=== PATIENT | male | born 1945 | race Caucasian/White ===

== ENCOUNTER 2016-09-03 08:28 | Outpatient (CLI) | payer MEDICARE ==
[2016-09-03 11:16] LABS: ALT (SGPT) 19 U/L (0-55); AST (SGOT) 19 U/L (5-34); Albumin 4.2 g/dL (3.4-4.8); Alkaline Phosphatase 134 U/L (40-150); Anion Gap 17 mmol/L (10-20); BUN (Urea Nitrogen) 21 mg/dL (8.4-25.7); Bilirubin, Total 0.9 mg/dL (0.2-1.2); Calc. Creatinine Clearance 0 mL/min (70-130); Calcium 9.4 mg/dL (7.8-10.44); Carbon Dioxide 24 mmol/L (23-31); Cardiac Risk 5.9 (Less than 4.5); Chloride 104 mmol/L (98-107); Cholesterol 232 mg/dL (< 200 Desired); Estimated GFR-MDRD 74; Globulin 2.6 g/dL (2.4-3.5); Glucose 98 mg/dL (80-115); HDL Cholesterol 39 mg/dL (>60 Neg Risk); LDL Cholesterol, Calculated 162 mg/dL; Potassium 4.3 mmol/L (3.5-5.1); Protein, Total 6.8 g/dL (5.8-8.1); Sodium 141 mmol/L (136-145); Triglycerides 157 mg/dL (Less than 150)
[2016-09-03 11:37] LABS: Free T4 (Free Thyroxine) 0.94 ng/dL (0.70-1.48); Thyroid Stimulating Hormone 1.603 uIU/mL (0.35-4.94)
== END 2016-09-03 08:29 ==
LOC: MADLABBHPM 08:28
PROVIDERS: ATTEND Family Medicine
DX: E78.2 Mixed hyperlipidemia (principal); I10 Essential (primary) hypertension
CPT/HCPCS: 36415; 80053; 80061; 84439; 84443

== ENCOUNTER 2018-01-23 10:02 | Emergency (ER) | payer MEDICARE ==
[2018-01-23 10:30] LABS: Bilirubin Negative (Negative); Blood, Urine Small (Negative); Clarity Clear (Clear); Glucose, Urine (Dipstick) Negative (Negative); Leukocyte Negative (Negative); Nitrite Negative (Negative); Protein, Urine (Dipstick) Negative (Neg-Trace); Urobilinogen 0.2 mg/dL (0.2-1.0)
[2018-01-23 10:37] LABS: Bacteria/HPF Rare-Few HPF (None Seen); RBC/HPF 0-3 HPF (0-3); Squamous Epithelial 0-3 HPF (0-3); WBC/HPF 0-3 HPF (0-3)
[2018-01-23] MEDS ORDERED: Clindamycin 150 MG CAP ONE (10:50)
== END 2018-01-23 10:55 | disposition home or self-care (01) ==
LOC: MADERS 10:02
DX: L73.9 Follicular disorder, unspecified (principal); I25.10 Atherosclerotic heart disease of native coronary artery without angina pectoris; I10 Essential (primary) hypertension; Z79.82 Long term (current) use of aspirin; Z79.891 Long term (current) use of opiate analgesic; Z79.899 Other long term (current) drug therapy
CPT/HCPCS: 81003; 81015; 99283

== ENCOUNTER 2018-08-31 12:39 | Emergency (ER) | payer MEDICARE ==
[2018-08-31 13:15] LABS: #Basophils 0.1 thou/uL (0.0-0.2); #Monocytes 1.8 thou/uL (0.11-0.59); #Neutrophils 11.2 thou/uL (1.40-6.50); %Basophils 0.9 % (0.0-1.0); %Lymphocytes 6.8 % (21.0-51.0); %Monocytes 12.5 % (0.0-10.0); %Neutrophils 79.9 % (42.0-75.0); Mean Corpuscular Volume 90.6 fL (78.0-98.0); Mean Platelet Volume 7.6 fL (7.4-10.4); Platelet Count 191 thou/uL (130-400); RBC Distribution Width 13.4 % (11.5-14.5); Red Blood Cell (RBC) Count 4.48 mill/uL (4.70-6.10)
--- NOTE | 2018-08-31 13:19 | RAD ---
SINGLE VIEW CHEST: Date: 08/31/18 COMPARISON: 11/21/13. HISTORY: Cough. FINDINGS: Single view of the chest shows an enlarged cardiomediastinal silhouette. The patient is status post C ABG. The pacemaker is unchanged in position. There is no evidence of consolidation, mass, or pleural effusion. IMPRESSION: No evidence of acute cardiopulmonary disease. POS: TPC
[2018-08-31 13:34] LABS: ALT (SGPT) 33 U/L (8-55); AST (SGOT) 25 U/L (5-34); Albumin 3.9 g/dL (3.4-4.8); Alkaline Phosphatase 140 U/L (40-150); Anion Gap 18 mmol/L (10-20); BUN (Urea Nitrogen) 27 mg/dL (8.4-25.7); Bilirubin, Total 3.6 mg/dL (0.2-1.2); Calc. Creatinine Clearance 0 mL/min (70-130); Calcium 9.1 mg/dL (7.8-10.44); Carbon Dioxide 20 mmol/L (23-31); Chloride 102 mmol/L (98-107); Estimated GFR-MDRD 60; Glucose 131 mg/dL (80-115); Lipase 6 U/L (8-78); Potassium 4.4 mmol/L (3.5-5.1); Protein, Total 6.9 g/dL (5.8-8.1); Sodium 136 mmol/L (136-145)
[2018-08-31 13:52] LABS: CKMB 0.9 ng/mL (0-6.6)
[2018-08-31] MEDS ORDERED: Aspirin Chewable 81 MG TAB ONE (14:56)
[2018-08-31] MEDS ORDERED: Acetaminophen 325 MG TAB ONE (15:01)
== END 2018-08-31 15:14 | disposition short-term general hospital (02) ==
LOC: MADERS 12:39
DX: I11.0 Hypertensive heart disease with heart failure (principal); I50.9 Heart failure, unspecified; I95.9 Hypotension, unspecified; I25.10 Atherosclerotic heart disease of native coronary artery without angina pectoris; Z79.899 Other long term (current) drug therapy; Z79.82 Long term (current) use of aspirin
CPT/HCPCS: 71045; 80053; 82553; 83690; 83880; 84484; 85025; 87804; 93005; J7620

== ENCOUNTER 2018-10-01 10:05 | Outpatient (CLI) | payer MEDICARE ==
[2018-10-01 11:16] LABS: Anion Gap 16 mmol/L (10-20); BUN (Urea Nitrogen) 23 mg/dL (8.4-25.7); Calc. Creatinine Clearance 0 mL/min (70-130); Calcium 9.5 mg/dL (7.8-10.44); Carbon Dioxide 25 mmol/L (23-31); Chloride 104 mmol/L (98-107); Estimated GFR-MDRD 60; Glucose 119 mg/dL (80-115); Potassium 4.8 mmol/L (3.5-5.1); Sodium 140 mmol/L (136-145)
--- NOTE | 2018-10-01 12:13 | CT ---
CT CHEST PERFORMED WITHOUT CONTRAST ENHANCEMENT: Date: 10/01/18 HISTORY: Community-acquired pneumonia of lung. COMPARISON: 09/01/18 study. FINDINGS: The ground-glass infiltrative changes seen within the right lower lobe on the previous examination denny ve largely resolved. There is a pleural based area of nodularity along the posterior sulcus, which is probably just related to some atelectatic change that has developed. The left lower lobe pulmonary n odule is felt to be fairly similar in appearance to the prior examination. There are some slightly in creased parenchymal changes surrounding this nodular density. Right-sided pleural effusion has resolved. No significant change in the mediastinal lymphadenopathy as compared to the prior examination. Visualized liver parenchymal is unremarkable. Right and left adrenal glands are within normal limits. IMPRESSION: 1. Almost complete resolution of the right lower lobe infiltrate. 2. Left lower lobe pulmonary nodule which is felt to be fairly stable in size. There are some slight ly more prominent parenchymal changes surrounding this nodule which may be just on the basis of some adjacent atelectasis. 3. Stable mediastinal lymphadenopathy. POS: TPC
== END 2018-10-01 10:06 | disposition home or self-care (01) ==
LOC: MADLABBHPM 10:05
PROVIDERS: ATTEND Nurse Practitioner Family
DX: I50.22 Chronic systolic (congestive) heart failure (principal); J18.9 Pneumonia, unspecified organism; R91.1 Solitary pulmonary nodule; R91.8 Other nonspecific abnormal finding of lung field; R59.0 Localized enlarged lymph nodes
CPT/HCPCS: 36415; 71250; 80048

== ENCOUNTER 2018-11-05 17:06 | Emergency (ER) | payer MEDICARE ==
[2018-11-05] MEDS ORDERED: Sodium Chloride 0.9% 250 ML 250 ML ONE (17:48)
[2018-11-05] MEDS ORDERED: Sodium Chloride 0.9% 100 ML ONE (17:48)
[2018-11-05] MEDS ORDERED: Azithromycin 500 MG VIAL ONE (17:48)
[2018-11-05] MEDS ORDERED: cefTRIAXone\\ROCEPHIN 1 GM VIAL ONE (17:48)
--- NOTE | 2018-11-05 18:00 | RAD ---
EXAM: Single view of the chest HISTORY: Cough COMPARISON: 08/31/2018 FINDINGS: Single view of the chest shows an enlarged but stable cardiomediastinal silhouette. The pa tient is status post sternotomy. The pacemaker is unchanged in position. There is no evidence of consolidation, mass, or pleural effusion. The bones are unremarkable. IMPRESSION: No evidence of acute cardiopulmonary disease
[2018-11-05 18:09] LABS: #Basophils 0.1 thou/uL (0.0-0.2); #Eosinphils 0.2 thou/uL (0.0-0.7); #Lymphocytes 0.9 thou/uL (1.20-3.40); #Monocytes 0.9 thou/uL (0.11-0.59); #Neutrophils 6.2 thou/uL (1.40-6.50); %Basophils 0.7 % (0.0-1.0); %Eosinophils 2.1 % (0.0-10.0); %Lymphocytes 10.8 % (21.0-51.0); %Monocytes 11.3 % (0.0-10.0); %Neutrophils 75.1 % (42.0-75.0); Hemoglobin 13.1 g/dL (14.0-18.0); Mean Corpuscular HGB CONC 32.3 g/dL (32.0-36.0); Mean Corpuscular Hemoglobin 27.6 pg (27.0-31.0); Mean Corpuscular Volume 85.4 fL (78.0-98.0); Mean Platelet Volume 7.3 fL (7.4-10.4); Platelet Count 147 thou/uL (130-400); RBC Distribution Width 13.8 % (11.5-14.5); Red Blood Cell (RBC) Count 4.75 mill/uL (4.70-6.10); White Blood Cell (WBC) Count 8.3 thou/uL (4.8-10.8)
[2018-11-05 18:26] LABS: ALT (SGPT) 13 U/L (8-55); AST (SGOT) 12 U/L (5-34); Alkaline Phosphatase 124 U/L (40-150); Anion Gap 17 mmol/L (10-20); BUN (Urea Nitrogen) 24 mg/dL (8.4-25.7); Bilirubin, Total 1.7 mg/dL (0.2-1.2); CK (CPK) 55 U/L (30-200); Calc. Creatinine Clearance 0 mL/min (70-130); Calcium 8.8 mg/dL (7.8-10.44); Carbon Dioxide 24 mmol/L (23-31); Chloride 103 mmol/L (98-107); Estimated GFR-MDRD 65; Globulin 2.9 g/dL (2.4-3.5); Glucose 118 mg/dL (80-115); Potassium 3.7 mmol/L (3.5-5.1); Protein, Total 6.9 g/dL (5.8-8.1); Sodium 140 mmol/L (136-145)
[2018-11-05 18:43] LABS: CKMB 1.1 ng/mL (0-6.6)
[2018-11-05] MEDS ORDERED: Aspirin Chewable 81 MG TAB ONE ×2 (19:48)
== END 2018-11-05 17:20 | disposition left against medical advice (07) ==
LOC: MADERS 17:06
DX: J20.9 Acute bronchitis, unspecified (principal); R00.0 Tachycardia, unspecified; I50.9 Heart failure, unspecified; I25.10 Atherosclerotic heart disease of native coronary artery without angina pectoris; Z79.891 Long term (current) use of opiate analgesic; Z79.899 Other long term (current) drug therapy
CPT/HCPCS: 71045; 80053; 82550; 82553; 83605; 84484; 85025; 87040; 87804; 93005; 96365; 96366; 96367; J0456; J0696; J3490; J7050

== ENCOUNTER 2019-05-01 08:10 | Outpatient (CLI) | payer MEDICARE ==
[2019-05-01 14:29] LABS: ALT (SGPT) 49 U/L (8-55); AST (SGOT) 35 U/L (5-34); Albumin 4.1 g/dL (3.4-4.8); Alkaline Phosphatase 165 U/L (40-110); Anion Gap 14 mmol/L (10-20); BUN (Urea Nitrogen) 24 mg/dL (8.4-25.7); Calc. Creatinine Clearance 0 mL/min (70-130); Calcium 9.4 mg/dL (7.8-10.44); Carbon Dioxide 25 mmol/L (23-31); Chloride 103 mmol/L (98-107); Estimated GFR-MDRD 66; Glucose 121 mg/dL (83-110); Magnesium 2.2 mg/dL (1.6-2.6); Potassium 4.5 mmol/L (3.5-5.1); Protein, Total 7.1 g/dL (5.8-8.1); Sodium 137 mmol/L (136-145)
== END 2019-05-01 08:11 | disposition home or self-care (01) ==
LOC: MADLAB 08:10
PROVIDERS: ATTEND Internal Medicine
DX: I50.22 Chronic systolic (congestive) heart failure (principal)
CPT/HCPCS: 36415; 80053; 83735; 83880

== ENCOUNTER 2020-03-10 14:09 | Outpatient (CLI) | payer MEDICARE ==
[2020-03-10 14:41] LABS: Anion Gap 17 mmol/L (10-20); BUN (Urea Nitrogen) 21 mg/dL (8.4-25.7); Calc. Creatinine Clearance 0 mL/min (70-130); Carbon Dioxide 24 mmol/L (23-31); Chloride 103 mmol/L (98-107); Estimated GFR-MDRD 60; Glucose 150 mg/dL (83-110); Potassium 3.9 mmol/L (3.5-5.1); Sodium 140 mmol/L (136-145)
[2020-03-10 14:43] LABS: Digoxin 0.47 ng/mL (0.8-2.0)
== END 2020-03-10 14:10 | disposition home or self-care (01) ==
LOC: MADLAB 14:09
PROVIDERS: ATTEND Nurse Practitioner Family
DX: I50.22 Chronic systolic (congestive) heart failure (principal)
CPT/HCPCS: 36415; 80048; 80162; 83880

== ENCOUNTER 2021-01-13 14:58 | Outpatient (CLI) | payer MEDICARE ==
[2021-01-13 15:11] LABS: Bilirubin Negative (Negative); Blood, Urine Small (Negative); Glucose, Urine (Dipstick) Negative (Negative); Ketone, Urine Negative (Negative); Leukocyte Negative (Negative); Nitrite Negative (Negative); Protein, Urine (Dipstick) Negative (Neg-Trace); Specific Gravity, Urine 1.025 (1.005-1.030); Urobilinogen 0.2 mg/dL (Less than 2)
[2021-01-13 15:29] LABS: Bacteria/HPF Rare-Few HPF (None Seen); Clarity Hazy (Clear); RBC/HPF 0-3 HPF (0-3); Squamous Epithelial 0-3 HPF (0-3); WBC/HPF 0-3 HPF (0-3)
== END 2021-01-13 14:59 | disposition home or self-care (01) ==
LOC: MADLAB 14:58
PROVIDERS: ATTEND Family Medicine
DX: R31.0 Gross hematuria (principal)
CPT/HCPCS: 81001; 87086

== ENCOUNTER 2021-09-22 16:12 | Emergency (ER) | payer OTHER, MEDICARE ==
[2021-09-22] MEDS ORDERED: Boostrix 0.5 ML (Tdap) VIAL ONE (17:36)
== END 2021-09-22 20:25 | disposition home or self-care (01) ==
LOC: MADERS 16:12
DX: S82.142A Displaced bicondylar fracture of left tibia, initial encounter for closed fracture (principal); I25.10 Atherosclerotic heart disease of native coronary artery without angina pectoris; I50.9 Heart failure, unspecified; Z79.82 Long term (current) use of aspirin; W01.198A Fall on same level from slipping, tripping and stumbling with subsequent striking against other object, initial encounter
CPT/HCPCS: 27532; 90471; 90715